=== PATIENT | male | born 1930 | race Caucasian/White ===

== ENCOUNTER → 2017-10-13 | Outpatient (CLI) | payer MEDICARE, BC ==
--- NOTE | 2017-10-26 23:39 | CON ---
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 HISTORY OF PRESENT ILLNESS: The patient presented to his paleontological helper, Dr. Kahn, with an enlarging new lesion involving the left forehead area and he also presented with a melanoma involving the right lateral forehead. 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 He also had resection of an invasive malignant melanoma to depth of 0.40 mm. Then on 08/25/2017, he had a wide local excision of the melanoma area. There was a residual malignant melanoma and Breslow measurement was 0.38 mm. The margins were free of involvement. He also had Mohs surgery of a right anterior shoulder skin cancer, but he still had a skin lesion in the left baptism area that measured about 1.5 cm. x 1.5 cm. So he had a left superficial parotidectomy on 09/25/2017 and that was resected and the pathology revealed a 1.7 x 0.8 cm [place] cell carcinoma, margin was clear, though the deep margin was less than 1 mm. The patient had 11 lymph nodes that were sampled and 1 was involved with Karen cell carcinoma that measured 0.35 cm. So, the patient healed up well after that surgery. Prior to that operation, he did have a neck and chest CT on 09/12/2017 and that revealed an enhancing mass in the left temporal region compatible with his report of Karen cell cancer and he also had a 1 cm left parotid nodule suspicious for metastatic lymph node. 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 So the patient presents for consideration for postoperative adjuvant radiation therapy. At the multidisciplinary tumor board, they suggested adjuvant radiation therapy. PAST MEDICAL HISTORY AND PAST SURGICAL HISTORY: [place] [id number] CONSULTATION Name: KELY MITTAL [id number] Admission: 10/13/17 Attend Phys: Daryl Andres MD Discharge: Date of : 30 Report #: [id number] cancers as reported in the history of present illness as well as resected melanoma from the right forehead and hyperlipidemia, and he has had 1 coronary artery stent placement in 2017. MEDICATIONS: Aspirin, Lipitor. ALLERGIES: He has no known drug allergies. FAMILY HISTORY: Mother had gastric cancer. SOCIAL HISTORY: The patient is retired. He is . He has 3 sons. Ethanol: The patient does not drink alcohol containing drinks. Cigarettes: The patient smoked 15 years and quit smoking in 1971. REVIEW OF SYSTEMS: GENERAL: The patient denied having any fevers or chills. SKIN: The patient had had some color changes in the area where he had skin cancers removed. He had a "melanoma" that was removed from the right baptism area. LYMPH NODES: He denied having enlarged or painful glands in the neck. ENDOCRINE: He denied having hot or cold intolerance. HEMATOLOGY/IMMUNOLOGY: The patient denied having any anemia. MUSCULOSKELETAL: The patient denied having any arthritis. HEAD AND NECK: The patient denied having any headaches or vertigo. RESPIRATORY: The patient denied having any wheezing. CARDIOVASCULAR: The patient denied having any palpitations. GASTROINTESTINAL: He denied having any vomiting. NEUROLOGIC: He denied having any focal weakness. PHYSICAL EXAMINATION: VITAL SIGNS: Height 5 feet 10 inches, weight 141.2 pounds, blood pressure 136/73, pulse 65, respirations 24. GENERAL PSYCHIATRIC: He was alert, oriented, and in no acute distress. LYMPH NODES: He had no cervical, supraclavicular lymphadenopathy. EYES: Pupils were equal, round and reactive to light and accommodation. Extraocular movements were intact. HEAD, EARS, NOSE AND THROAT: Mouth had no suspicious visible lesions or suspicious palpable lesions. The patient is edentulous. He wears upper and lower dentures. He has a Band-Aid over the area where he had the melanoma resected on the right baptism. He had well-healed surgical scars on the left forehead; one measured about 7 cm, another 6 cm and the other one 6 cm in the area where he had his surgical resection of the Karen cell cancer. HEART: Had a regular rate and rhythm without murmur. LUNGS: were clear to auscultation. ABDOMEN: Not tender. Spleen was not palpable. Liver was at the costal margin. EXTREMITIES: Had no clubbing, cyanosis or edema. NEUROLOGIC: Cranial nerves II to XII were intact. Sensation was intact. The patient had 5/5 strength throughout his extremities. [address] [address] CONSULTATION Name: KELY MITTAL Room: [facility] Kwok.#: [id number] Admission: 10/13/17 Attend Phys: Daryl Andres MD Discharge: Date of : 30 Report #: [id number] ASSESSMENT AND PLAN: The patient was offered adjuvant radiation therapy to help reduce the chance of local recurrence. There is evidence that adjuvant radiation therapy may also improve survival. One article was entitled "radiotherapy and conservative surgery and the local regional management of Karen cell carcinoma at the [facility] experience. " One of the authors was Dr. Lemus and that was published in 2016; adjuvant radiation therapy reduced local recurrence after narrow excision, (which was less than 10 mm), reducing it from from 25% to 4.9%. There was also a large retrospective series database analysis of 1187 cases, which demonstrated longer survival in patients who received adjuvant radiation therapy compared to those who did not; with a median survival of 63 months if they received radiation therapy versus 45 months if they did not receive radiation therapy. So the risks, benefits, logistics of radiation therapy were explained to the patient in detail. The patient gave his witnessed informed consent to proceed with radiation therapy. He will be a good candidate for intensity modulated radiation therapy. Thank you very much for this consult. <ELECTRONICALLY SIGNED> By: Daryl Andres MD 10/26/17 [id number] irving Short
== END ==
LOC: M.RTH 00:11
DX: C43.39 Malignant melanoma of other parts of face (principal)